=== PATIENT | male | born 1980 | race Caucasian/White ===

== ENCOUNTER 2017-02-06 11:40 | Emergency (ER) | payer SELFPAY ==
[~2017-02-06] VITALS: Ht 182.9 cm; Wt 83.9 kg
--- NOTE | 2017-02-06 12:14 | ED Lower Extremity ---
General Chief Complaint: Lower Extremity Stated Complaint: L KNEE PAIN, FLUID BUILD UP Nursing Triage Note: Has had asamanod ranjithleter sx when kid has had flare up over last week- icing and taking motrin Nursing Sepsis Screen: No Definite Risk History of Present Illness Time seen by provider: 12:00 Initial Comments Patient had Booker Quirozer since childhood, over the last 2 weeks he has noticed increased swelling in his left proximal tibia. 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 He's been doing ice massage and the swelling has improved. He took ibuprofen this morning. No previous surgeries or fractures on the left knee. Onset: last week Pain/Injury Location: left knee Method of Injury: unknown Modifying Factors: Improves With Cold Therapy, Improves With Rest Allergies and Home Medications Allergies Coded Allergies: No Known Drug Allergies (Unverified , 02/06/17) Home Medications Naproxen 500 Mg Tablet, 500 MG PO BID WITH MEALS, #40 Ref 0 Prescribed by: MAMIE MUNOZ on 02/06/17 1309 Constitutional: no symptoms reported, see HPI Musculoskeletal: see HPI, joint pain, other (pain and swelling left knee) All Other Systems Reviewed Negative Unless Noted: Yes Past Bvgzbnw-Igrhze-Bhejxm Hx Patient Social History Alcohol Use: Denies Use Recreational Drug Use: Yes (pot- occ, last 7-8 months ago) Smoking Status: Current Everyday Smoker Type Used: Cigarettes 2nd Hand Smoke Exposure: No Recent Foreign Travel: No Contact w/Someone Who Travel: No Recent Infectious Disease Expo: No Recent Hopitalizations: No Physical Abuse: No Sexual Abuse: No Mistreated: No Fear: No Immunizations Up To Date Tetanus Booster (TDap): More than 5yrs Seasonal Allergies Seasonal Allergies: No Surgeries History of Surgeries: No Respiratory History of Respiratory Disorde: No Cardiovascular History of Cardiac Disorders: No Neurological History of Neurological Disord: No Genitourinary History of Genitourinary Disor: No Gastrointestinal History of Gastrointestinal Di: No Musculoskeletal History of Musculoskeletal Dis: Yes (janee arias) Endocrine History of Endocrine Disorders: No HEENT History of HEENT Disorders: No Cancer History of Cancer: No Psychosocial History of Psychiatric Problem: No Suicide Risk Score: 0 Integumentary History of Skin or Integumenta: No Blood Transfusions History of Blood Disorders: No Reviewed Nursing Assessment Reviewed/Agree w Nursing PMH: Yes Physical Exam Vital Signs Vital Sign - Last 12Hours 02/06/17 11:51 Temp 99.0 Pulse 101 Resp 18 B/P (MAP) 168/98 Pulse Ox 99 Capillary Refill : Less Than 3 Seconds General Appearance: WD/WN, no apparent distress Neck: full range of motion, normal inspection Cardiovascular: normal peripheral pulses, regular rate, rhythm, no murmur Respiratory: chest non-tender, lungs clear, normal breath sounds Knees: right knee non-tender, bilateral knee normal range of motion, left knee bone tenderness (proximal tibia), left knee deformity (prominence of the tibial tuberosity), left knee pain, left knee soft tissue tenderness, left knee swelling, left knee other (full range of motion left knee, no medial or lateral instability, negative Timmy and anterior drawer. Patellar and quadriceps tendon intact. Exquisite tenderness, swelling and prominence of the tibial tuberosity.) Neurologic/Psychiatric: no motor/sensory deficits, alert, normal mood/affect, oriented x 3 Skin: normal color, warm/dry Progress/Results/Core Measures Results/Orders My Orders Orders - MAMIE MUNOZ Knee, Left, 3 Views (02/06/17 11:59) Tramadol Tablet (Ultram Tablet) (02/06/17 12:06) Vital Signs/I&O Vital Sign - Last 12Hours 02/06/17 02/06/17 11:51 13:23 Temp 99.0 99.3 Pulse 101 109 Resp 18 18 B/P (MAP) 168/98 Pulse Ox 99 99 Blood Pressure Mean: 121 Diagnostic Imaging Diagonstic Imaging: Xray Plain Films/CT/US/NM/MRI: knee Comments NAME: [facility] REC#: [id number] PT STATUS: REG ER : 1980 PHYSICIAN: MAMIE MUNOZ ADMIT DATE: 02/06/17/ER Draft Date of Exam:02/06/17 KNEE, LEFT, 3 VIEWS INDICATION: Left knee pain COMPARISON: None. FINDINGS: 3 views of the left knee demonstrate hypertrophy and fragmentation of the tibial tuberosity consistent with Smoot-Schlatter. There is no acute fracture or dislocation. Soft tissue swelling is seen overlying the tibial tuberosity. There is no soft tissue gas or foreign body. There is no joint effusion. IMPRESSION: Soft tissue swelling overlying hypertrophied fragmented tibial tuberosity. No underlying fracture or dislocation. Dictated on workstation # [id number] Dict: 02/06/17 1218 Trans: 02/06/17 1226 [facility] [id number] Interpreted by: THELMA BERUMEN Electronically signed by: Reviewed: Reviewed by Me Departure Impression Impression: Primary Impression: Smoot-Schlatter's disease of left lower extremity Additional Impression: Knee pain Qualified Codes: M25.562 - Pain in left knee Disposition: HOME, SELF-CARE Condition: Stable Departure-Patient Inst. Decision time for Depature: 12:45 Referrals: NO,LOCAL PHYSICIAN (PCP/Family) Primary Care Physician Patient Instructions: Knee Pain (DC), Smoot-Schlatter Disease (DC) Add. Discharge Instructions: Ice massage to left knee with Dunn Cups Use Sha wrap for knee sleeve Kneepad for work. If symptoms are not improving in 5-10 days schedule appointment with orthopedics. Return to emergency department if symptoms worsen or new problems. Use naproxen prescription as ordered. Do not take ibuprofen with this, you may take Tylenol 650 mg every 6-8 hours for additional pain. All discharge instructions reviewed with patient and/or family. Voiced understanding. Scripts Naproxen (Naprosyn) 500 Mg Tablet 500 MG PO BID WITH MEALS, #40 TAB 0 Refills Prov: MAMIE MUNOZ 02/06/17 MAMIE MUNOZ Feb 06, 2017 12:14
--- NOTE | 2017-02-06 12:26 | Diagnostic Imaging Report ---
INDICATION: Left knee pain COMPARISON: None. FINDINGS: 3 views of the left knee demonstrate hypertrophy and fragmentation of the tibial tuberosity consistent with João-Schlatter. There is no acute fracture or dislocation. Soft tissue swelling is seen overlying the tibial tuberosity. There is no soft tissue gas or foreign body. There is no joint effusion. IMPRESSION: Soft tissue swelling overlying hypertrophied fragmented tibial tuberosity. No underlying fracture or dislocation. Dictated by: Dictated on workstation # [id number]
[2017-02-06] MEDS ORDERED: NAPR500T PO (13:09)
[2017-02-06 13:23] VITALS: BP 141/92
== END 2017-02-06 13:23 | disposition home or self-care (01) ==
LOC: ER 11:43
DX: M92.52 Juvenile osteochondrosis of tibia tubercle (principal); F17.210 Nicotine dependence, cigarettes, uncomplicated
CPT/HCPCS: 73562; 99283